=== PATIENT | female | born 1980 | race Caucasian/White ===

== ENCOUNTER 2025-02-26 10:35 | Outpatient (REF) | payer OTHER, SELFPAY ==
--- OUTSIDE RECORDS SUMMARY | 2025-02-26 13:29 | XMS_ITS | Clinical Summary ---
Author Organization [facility] [address] [facility] Address [address] [place] [address] Phone Care Team Providers Care Resident Services Coordinator Name Role Phone Renata Sterling BRICK MOLDER HAND Primary Care Provider [phone] Social History Tobacco Use Types Packs/Day Years Used Date Smoking Tobacco: Never Assessed Comments Unknown Sex and Gender Information Value Date Recorded Sex Assigned at Female 02/14/2025 1:32 PM EST Legal Sex Female 2:21 AM EST Gender Identity Not on file Sexual Orientation Not on file Plan of Treatment Upcoming Encounters Date Type Department Care Team (Late st Contact Info) Description 02/26/2025 3:15 PM EST Appointment [facility] at [address] [address] Health Maintenance Due Date Last Done Comments Breast Cancer Screening 1979 Colorectal Cancer Screening: Colonoscopy 1979 Hepatitis B Vaccines (1 of 3 - 19+ 3-dose series) 09/24/1998 Cervical Cancer Screening: P ap Smear 09/24/2000 HPV Vaccines (1 - 3-dose SCD M series) 09/24/2006 Cholesterol Screening (Lipid Panel) 04/12/2023 HIV Screening 04/12/2023 Hepatitis C Screening 04/12/2023 Social Influencers of Health Screening 04/12/2023 Depression Screening 03/14/2024 COVID-19 Vaccine (1 - 2024-2 6 season) 2024 Influenza Vaccine (#1) 2024 DTaP,Tdap,and Td Vaccines (2 - Td or Tdap) 03/29/2025 03/29/2015 RSV Immunization Adult Patie nts (1 - 1-dose 75+ series) 09/24/2054 HIB Vaccines Aged Out No longer eligi ble based on patient's age to complete this topic Hepatitis A Vaccines Aged Out No long er eligible based on patient's age to complete this topic IPV Vaccines Aged Out No longer eligi ble based on patient's age to complete this topic MMR Vaccines Aged Out No longer eligi ble based on patient's age to complete this topic Meningococcal ACWY Vaccine Aged Out N o longer eligible based on patient's age to complete this topic Meningococcal B Vaccine Aged Out No l onger eligible based on patient's age to complete this topic Pneumococcal Vaccine: Pediat rics (0 to 5 Years) and At-Risk Patients (6 to 49 Years) Aged Out No longer eligi ble based on patient's age to complete this topic RSV Immunization Patients Un gemma 20 months Aged Out No longer eligible b ased on patient's age to complete this topic Varicella Vaccines Aged Out No longer eligible based on patient's age to complete this topic Insurance [facility] Care Teams Resident Services Coordinator Relationship Specialty Start Date End Date Renata Sterling NP [address] [place] [phone] PCP - General Family Medicine 02/14/25
--- OUTSIDE RECORDS SUMMARY | 2025-02-26 13:30 | XMS_ITS | Clinical Summary ---
Author Organization [employer] Address [address] [facility] [address] [place] [address] Care Team Providers Care Soubrette Name Role Phone Renata Sterling JOSEPHINE Primary Care Provider [phone] Allergies Active Allergy Reactions Criticality Noted Date Comments Banana 02/11/2025 Flaxseed (Linseed) 02/11/2025 Fruit Extracts 02/11/2025 Other 02/11/2025 Other Reaction(s): Nuts and seeds Proanthocyanidin 02/11/2025 [place] Extract 02/11/2025 Medications acetaminophen (Tylenol) 325 MG tablet 025 Active naproxen (Naprosyn) 500 MG tablet Take 500 mg by mouth. 025 Active loratadine (Claritin) 10 MG tablet Take 10 mg by mouth. 025 2024 Active Levonorgestrel (Mirena, 52 MG,) 20 MCG/DAY intrauterine device See Instructions, 1 each Once, bring to office for insertion, # 1 each, 0 Refills, Soft Stop, 11/14/18 4:30:51 PM EDT, [facility] 019 Active cyclobenzaprine (Flexeril) 5 MG tablet See Instructions, PRN as needed for muscle pain, Take 1-2 tablets every 8 hours as needed for pain. May cause sleepiness., # 30 tablet, 0 Refills, Maintenance, 08/21/24 11:52:00 AM EDT, [id number], Partial fill upon patient request if the prescription is for a schedule II opioid drug., 158, cm, 08/01/24 9:43:00 EDT, Height 025 Active sertraline (Zoloft) 100 MG tabletIndications :Anxiety Take 1 tablet (100 mg) by mouth Once per day. 30 tablet 11 Active meclizine (Antivert) 25 MG tabletIndications :Chronic migraine without aura without status migrainosus, not intractable Take 1 tablet (25 mg) by mouth if needed in the morning, at noon, and at bedtime for dizziness. 30 tablet Active topiramate 50 MG tabletIndications :Chronic migraine without aura without status migrainosus, not intractable Take 1 tablet (50 mg) by mouth 2 times daily. 60 tablet Active atorvastatin (Lipitor) 40 MG tabletIndications :Hyperlipidemia, unspecified hyperlipidemia type Take 1 tablet (40 mg) by mouth Once per day. 30 tablet Active ibuprofen 600 MG tabletIndications :Chronic migraine without aura without status migrainosus, not intractable Take 1 tablet (600 mg) by mouth 3 times daily. 90 tablet 2025 Active Symbicort 80-4.5 MCG/ACT inhalerIndication s:Mild persistent asthma, unspecified whether complicated Inhale 2 puffs in the morning and at bedtime. Rinse mouth with water after use to reduce aftertaste and incidence of candidiasis. Do not swallow. 1 each 2025 Active albuterol 108 (90 Base) MCG/ACT inhalerIndication s:Mild persistent asthma, unspecified whether complicated Inhale 2 puffs every 4 (four) hours if needed for wheezing. 18 g 2025 Active omeprazole (PriLOSEC) [address] capsuleIndication s:Gastroesophagea l reflux disease, unspecified whether esophagitis present Take 1 capsule (40 mg) by mouth before breakfast. 30 capsule 2025 Active atorvastatin (Lipitor) 40 MG tablet Take 1 tablet by mouth Once per day. 2024 Discontinued(R eorder (will not trigger notification to Pharmacy)) Symbicort 80-4.5 MCG/ACT inhaler USE 2 INHALATION BY MOUTH TWICE DAILY 025 2024 Discontinued(R eorder (will not trigger notification to Pharmacy)) ibuprofen 600 MG tablet 2024 Discontinued(R eorder (will not trigger notification to Pharmacy)) sertraline (Zoloft) 100 MG tablet Take 1 tablet by mouth Once per day. 025 2024 Discontinued(R eorder (will not trigger notification to Pharmacy)) topiramate 50 MG tablet Take 50 mg by mouth 2 times daily. 2024 Discontinued(R eorder (will not trigger notification to Pharmacy)) predniSONE (Deltasone) 50 MG tablet Take 1 tablet by mouth Once per day. 025 2024 Discontinued omeprazole (PriLOSEC) [address] capsule Take 1 tablet by mouth 2 times daily. 025 2024 Discontinued(R eorder (will not trigger notification to Pharmacy)) meclizine (Antivert) 25 MG tablet Take 25 mg by mouth. 025 2024 Discontinued(R eorder (will not trigger notification to Pharmacy)) omeprazole (PriLOSEC) [address] capsuleIndication s:Gastroesophagea l reflux disease, unspecified whether esophagitis present Take 1 capsule (20 mg) by mouth 2 times daily. 60 capsule 11 2024 Discontinued Active Problems Problem Noted Date Diagnosed Date GERD (gastroesophageal reflux disease) Assessment & Plan (02/12/2025 2:05 PM EST): Orders: omeprazole (PriLOSEC) [address] capsule; Take 1 capsule (20 mg) by mouth 2 times daily. Allergic rhinitis 02/11/2025 Asthma 02/11/2025 Assessment & Plan (02/12/2025 2:05 PM EST): Orders: Symbicort 80-4.5 MCG/ACT inhaler; Inhale 2 puffs in the morning and at bedtime. Rinse mouth with water after use to reduce aftertaste and incidence of candidiasis. Do not swallow. albuterol 108 (90 Base) MCG/ACT inhaler; Inhale 2 puffs every 4 (four) hours if needed for wheezing. Carpal tunnel syndrome 02/11/2025 Chronic migraine without aura 02/11/2025 Assessment & Plan (02/12/2025 2:05 PM EST): Orders: meclizine (Antivert) 25 MG tablet; Take 1 tablet (25 mg) by mouth if needed in the morning, at noon, and at bedtime for dizziness. topiramate 50 MG tablet; Take 1 tablet (50 mg) by mouth 2 times daily. ibuprofen 600 MG tablet; Take 1 tablet (600 mg) by mouth 3 times daily. JENN II (cervical intraepithelial neoplasia II) 1 04/14/2024 Family history of colorectal cancer 02/11/2025 Generalized anxiety disorder 02/11/2025 HPV in female 02/11/2025 Hyperlipidemia 02/11/2025 Assessment & Plan (02/12/2025 2:05 PM EST): Orders: atorvastatin (Lipitor) 40 MG tablet; Take 1 tablet (40 mg) by mouth Once per day. Low grade squamous intraepit helial lesion (LGSIL) on Papanicolaou smear of cervix 02/11/2025 Overview (02/11/2025): 02/2015 - cytology normal, HPV negative 2020 - insufficient cytology, HPV neg 2020 - LSIL, HPV negative [1] Most recent pap, 05/08 with LSIL and HPV negative Macromastia 02/11/2025 DEYSI on CPAP 02/11/2025 Severe obesity (CMS/HCC) 02/11/2025 Ulnar neuropathy 02/11/2025 Obesity (BMI 30-39.9) 11/17/2017 IUD (intrauterine device) in place 09/15/2012 Resolved Problems Problem Noted Date Diagnosed Date Resolved Date Chronic pain of left knee 02/11/2025 Chronic thoracic back pain 02/11/2025 1 04/15/2024 Constipation 02/11/2025 02/12/2025 Acid reflux 02/11/2025 02/12/2025 Migraine with aura and witho ut status migrainosus, not intractable 11/17/2017 02/12/2025 Encounters Date Type Department Care Team Description 02/12/2025 1:00 PM EST Office Visit [facility] [address] [place] [address] Renata Sterling CNP Encounter for screening for malignant neoplasm of colon (Primary Dx); Encounter to establish care; Anxiety; Gastroesophageal reflux disease, unspecified whether esophagitis present; Chronic migraine without aura without status migrainosus, not intractable; Hyperlipidemia, unspecified hyperlipidemia type; Mild persistent asthma, unspecified whether complicated; Encounter for immunization 02/12/2025 Refill [facility] [address] [place] [address] Renata Sterling CNP Gastroesophageal reflux disease, unspecified whether esophagitis present 02/12/2025 Travel 02/11/2025 Travel 02/11/2025 Telephone [facility] [address] [place] [address] Nancy Fisher MA chart prep 01/31/2025 Patient Outreach [facility] [address] [place] [address] Damir Colbert MD Pre-visit Planning (Pre visit planning LVM ) 12/28/2024 Telephone [facility] [address] [place] [address] Damir Colbert MD CH[facility] - New Patient Assistance from Last 3 Months Immunizations Immunization Administration Dates Next Due HPV 9-Valent 11/26/2024,09/11/2024 HPV, Quadrivalent 11/26/2024,09/11/2024 Influenza Whole 01/21/2012,11/30/2010,12/02/2008 Influenza injectable quadriv alent preservative free 12/22/2019 Influenza, IIV3, injectable 03/04/2021,1 ,04/04/2018,2015,12/31/2014,12/19/2013,12/13/2012,0 12/11/2009 Influenza, seasonal, injecta ble, preservative free 03/04/2021,12/28/2015,12/31/2014 Novel [id number], all formulations 01/27/2009 Pneumococcal Conjugate PCV 20 02/12/2025 Td (adult), unspecified 11/29/2003 Tdap 05/02/2024,12/04/2013 Social History Tobacco Use Types Packs/Day Years Used Date Smoking Tobacco: Never Smokeless Tobacco: Never Alcohol Use Standard Drinks/Week Comments Not Currently 1 (1 standard drink = 0.6 oz pur e alcohol) Depression Answer Date Recorded Patient Health Questionnaire-9 Score 1 02/12/2025 Patient Health Questionnaire-9 Score 1 02/12/2025 Last PHQ-9: Questionnaire Data Not on file 1 04/15/2024 Housing Stability Answer Date Recorded What is your housing situation today? I have herminia ramu 02/12/[address] you li ve. Do you have problems with any of the following? None of the above 02/12/2025 Food Insecurity Answer Date Recorded Within the past 12 months, y ou worried that your food would run out before you got money to buy more: Never True 02/12/2025 Within the past 12 months,th e food you bought just didn't last and you didn't have enough money to get more: Never True 04/2024 Transportation Answer Date Recorded In the past 12 months, has l ack of transportation kept you from medical appts, meetings, work or from getting things needed for daily living? No 02/12/2025 Utilities Answer Date Recorded In the past 12 months, has t he electric, gas, oil or water company threatened to shut off services in your home? No 02/12/2025 Depression Answer Date Recorded Patient Health Questionnaire-2 Score 0 02/12/2025 Internet Access Answer Date Recorded Internet Access Q1 Yes 02/12/2025 Internet Access Q2 Not on file 02/12/2025 Comments No Sex and Gender Information Value Date Recorded Sex Assigned at Female 12/28/2024 10:32 AM EDT Legal Sex Female 10:31 AM EDT Gender Identity Female 12/28/2024 10:32 AM EDT Sexual Orientation Straight 02/12/2025 1: 10 PM EST Last Filed Vital Signs Vital Sign Reading Time Taken Comments Blood Pressure 126/78 02/12/2025 1:26 PM EST Pulse 80 02/12/2025 1:26 PM EST Temperature 36.1 C (97 F) 02/12/2025 1:26 PM EST Respiratory Rate 12 02/12/2025 1:26 PM EST Oxygen Saturation - - Inhaled Oxygen Concentration - - Weight 82.1 kg (181 lb) 02/12/2025 1:26 PM EST Height 154.9 cm (5' 1 ) 02/12/2025 1:26 PM EST Body Mass Index 34.2 02/12/2025 1:26 PM EST Plan of Treatment Health Maintenance Due Date Last Done Comments CT Colonography 1979 Colonoscopy 1979 Colorectal Cancer Screening 1979 FIT DNA/Cologuard 1979 FIT 1979 FOBT 1979 HIV Screening 1979 Lipid Panel 1979 Sigmoidoscopy 1979 Family Planning (PISQ) 09/24/1994 Hepatitis C Screening 09/24/1997 Hepatitis B Vaccines (1 of 3 - 19+ 3-dose series) 09/24/1998 Pap Smear 09/24/2000 Cervical Cancer Screening 09/24/2009 HPV/Cotest 09/24/2009 Mammogram 2019 COVID-19 Vaccine ( season) 2024 03/04/2021, 05/17/2020, 04/26/2020 Influenza Vaccine (#1) 2024 , 03/04/2021, 12/22/2019, Additional history exists HPV Vaccines (3 - 3-dose series) 03/14/2025 11/26/2024, 11/26/2024, 09/11/2024, Additional history exists Alcohol/Substance Use Screening 02/12/2026 02/12/2025 Depression Screening 02/12/2026 02/12/2025, 02/13/20 25 Disability Screening 02/12/2026 02/12/2025 SDOH Screening 02/12/2026 02/12/2025 Tobacco Screening 02/12/2026 02/12/2025 Zoster Vaccines (1 of 2) 09/24/2029 DTaP/Tdap/Td Vaccines (3 - Td or Tdap) 05/02/2034 05/02/2024, 12/04/2013, 11/29/2003 RSV Patients and Patients Aged 60 years or older (1 - 1-dose 75+ series) 09/24/2054 Pneumococcal Vaccine: Pediatrics (0 to 5 Years) and At-Risk Patients (6 to 49) Years Completed 02/12/2025 HIB Vaccines Aged Out No longer eligi [...] patient's age to complete this topic Meningococcal Vaccine Aged Out No epifanio brenton eligible based on patient's age to complete this topic RSV under 20 months Aged Out No longe r eligible based on patient's age to complete this topic Rotavirus Vaccines Aged Out No longer eligible based on patient's age to complete this topic [place] [address] [address] [place] [address] [facility] Care Teams Soubrette Relationship Specialty Start Date End Date Renata Sterling CNP [address] [place] [phone] PCP - General Family Medicine 02/12/25
[2025-02-26 15:28] LABS: MANUAL DIFF FLAG NO
[2025-02-26 15:35] LABS: Hematocrit 44.3 % (37.0-47.0); Hemoglobin 14.6 g/dl (12.0-16.0); Imm Gran Abs Auto 0.01 X10*3/uL (0.00-0.03); Imm Gran Pct Auto 0.2 % (0.0-0.4); Lymphocytes Absolute Auto 1.9 X10*3/uL (1.2-4.9); Mean Corpuscular HGB Conc 33.0 g/dl (31.0-35.0); Mean Corpuscular Hemoglobin 30.1 pg (27.0-33.0); Mean Corpuscular Volume 91.3 fL (80.0-98.0); NRBC Abs Auto 0.000 X10*3/uL (0.0-0.012); NRBC Pct Auto 0.0 /100WBC (0.0-0.2); Platelet Count 271 X10*3/uL (160-400); Red Blood Count 4.85 X10*6/uL (4.20-5.50); White Blood Count 5.6 X10*3/uL (4.8-10.8)
[2025-02-26 16:21] LABS: Alanine Aminotransferase 27 U/L (0-31); Albumin Level 4.5 g/dL (3.5-5.0); Alkaline Phosphatase 116 U/L (39-117); Anion Gap 11 (12-20); Aspartate Amino Transferase 33 U/L (5-31); Blood Urea Nitrogen 11 mg/dL (9-16); Calcium 9.4 mg/dL (8.4-10.2); Carbon Dioxide 26 mmol/L (22-29); Chloride 105 mmol/L (96-108); Cholesterol 253 mg/dL (<200); Estimated Glomerular Filt Rate > 60; HDL Cholesterol 41 mg/dL (>40); Potassium 3.8 mmol/L (3.3-5.1); Sodium 138 mmol/L (135-145); Total Protein 7.8 g/dL (6.5-8.0); Triglycerides 177 mg/dL (<150)
[2025-02-27 05:07] LABS: HIV Num 1 0.05 S/CO (0.00-0.99); ~HepC Num1 0.14 S/CO (0.00-0.79); ~Hepatitis C Antibody Nonreactive (Nonreactive)
== END 2025-02-26 10:36 | disposition home or self-care (01) ==
LOC: HO.CHCLDS 10:35
DX: Z12.11 Encounter for screening for malignant neoplasm of colon (principal); Z11.4 Encounter for screening for human immunodeficiency virus [HIV]; Z11.59 Encounter for screening for other viral diseases; Z13.6 Encounter for screening for cardiovascular disorders
CPT/HCPCS: 36415; 80048; 80061; 80076; 85025; 86803; 87389